=== PATIENT | male | born 1950 | race Caucasian/White ===

== ENCOUNTER 2024-04-01 06:03 | Day surgery (SDC) | payer OTHER ==
[2024-03-26 14:56] VITALS: BMI 30.8
[2024-04-01] MEDS ORDERED: MIDAZOLAM HCL 2 MG/2 ML SINGLE DOSE VIAL ONE (07:17)
[2024-04-01] MEDS ORDERED: PROPOFOL 20 ML ONE (07:17)
[2024-04-01] MEDS ORDERED: LIDOCAINE HCL 1%, 10 MG/ML (20ML VIAL) ONE (07:28)
[2024-04-01] MEDS ORDERED: LIDOCAINE HCL 2% (20ML MULTI-DOSE VIAL) ONE (07:28)
[2024-04-01] MEDS ORDERED: BUPIVACAINE HCL/PF 0.5% (5MG/ML) 10 ML VIAL ONE (07:28)
[2024-04-01] MEDS ORDERED: BUPIVACAINE HCL/PF 0.25% (2.5MG/ML) 10 ML VIAL ONE (07:28)
[2024-04-01] MEDS ORDERED: DEXMEDETOMIDINE HCL 200 MCG/2 ML IVPB ONE (07:29)
[2024-04-01] MEDS ORDERED: methylPREDNISolone ACET (DEPO) 40 MG/1 ML VIAL ONE (07:43)
[2024-04-01] MEDS ORDERED: ceFAZolin SODIUM 1 GM VIAL ONE (08:31)
[2024-04-01] MEDS ORDERED: LIDOCAINE HCL/PF 2% SDV 5ML VIAL ONE (08:31)
[2024-04-01] MEDS ORDERED: ONDANSETRON 4 MG/2 ML VIAL IVPUSH PRN (08:32)
[2024-04-01] MEDS ORDERED: oxyCODONE HCL 5 MG TABLET PO PRN (08:32)
[2024-04-01 08:40] VITALS: RESP 18
[2024-04-01] MEDS ORDERED: LACTATED RINGERS SOLUTION 1,000 ML IV SCH (08:45)
[2024-04-01 09:05] VITALS: TEMP 97.2
[2024-04-01 10:02] VITALS: BP 122/62; PULSE 75
== END 2024-04-01 10:23 | disposition home or self-care (01) ==
LOC: FASU 06:03
PROVIDERS: ATTEND Orthopaedic Surgery Sports Medicine
PROC: 0R9P3ZZ Drainage of Left Wrist Joint, Percutaneous Approach (ICD-10-PCS; 2024-04-01)
PROC: 0JBR0ZZ Excision of Left Foot Subcutaneous Tissue and Fascia, Open Approach (ICD-10-PCS; principal; 2024-04-01 07:56)
DX: M72.2 Plantar fascial fibromatosis (principal); M67.834 Other specified disorders of tendon, left wrist
CPT/HCPCS: 94760